=== PATIENT | male | born 1980 | race African-American/Black ===

== ENCOUNTER 2017-01-15 10:32 | Emergency (ER) | payer OTHER ==
[~2017-01-15] VITALS: Ht 165.1 cm; Wt 72.1 kg
[~2017-01-15 10:32] MED LIST: EYED OPB
[2017-01-15 10:34] VITALS: TEMP 36.5; Ht 165.1 cm; Wt 72.1 kg
--- NOTE | 2017-01-15 11:28 | EMERGENCY ROOM VISIT NOTE ---
ED Visit Note First contact with patient: 11:07 CHIEF COMPLAINT: Wrist injury HISTORY OF PRESENT ILLNESS: This 36-year-old male patient presents to the emergency department by private vehicle complaining of pain in the right wrist after an injury 1.5 weeks ago. 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 He went to an urgent care the following day and had x-rays that he was told were negative. He is concerned because he continues to have significant pain and deformity in his wrist, and is here because he wants to be rechecked. The patient is able to move their wrist. The patient states the pain is aching/ throbbing and 6/10. No laceration, no weakness. No numbness or tingling. The patient denies any other injury. The patient is able to move their fingers and elbow without difficulty. The patient has not had a previous fracture to this wrist. The patient has taken no medications for the pain. REVIEW OF SYSTEMS: A 6 system review of systems was performed with positives and pertinent negatives in the HPI. ALLERGIES: Reviewed in chart MEDICATIONS: No medications PMH: No significant past medical or surgical history SOCIAL HISTORY: Lives at home. Current every day smoker, denies alcohol and recreational drug use. PHYSICAL EXAM: Vital Signs: Reviewed Nurse's notes, vital signs stable. GENERAL : Pleasant and cooperative, in no acute distress, well-developed, well- nourished. NEURO: Alert and oriented to person place and time. Normal sensation to light and sharp touch. MUSCULOSKELETAL: There is no obvious deformity of the right wrist. There is tenderness and edema over the right proximal second and third metacarpal. There is no snuff box tenderness. Range of motion is intact. There is no tenderness of the elbow, hand or fingers. Business Office Representative strength 4/5. Radial pulse 2+. SKIN: Normal and intact. The hand is warm and well perfused with capillary refill less than 2 seconds. IMAGING: RIGHT WRIST 5 VIEWS CLINICAL HISTORY: Right wrist pain. FINDINGS: 5 views of the right wrist are obtained. No prior studies are available for comparison at the time of dictation. The skeletal structures are well mineralized. There is an avulsion fracture identified along the dorsal aspect of the carpometacarpal junction. This is only seen on the lateral view and the donor site cannot be localized. No additional fracture is seen. The joint spaces of the wrist are well-maintained. Dorsal soft tissue swelling is noted. IMPRESSION: 1. There is a small avulsion fracture identified along the dorsal aspect of the carpometacarpal junction with overlying soft tissue edema. The exact donor site cannot be localized. 2. No additional fracture is identified. EMERGENCY DEPARTMENT COURSE: I examined the patient. Differential diagnosis includes contusion, sprain/strain, fracture, dislocation. An X-ray of the right hand and right wrist was reviewed by myself and radiologist and showed an avulsion fracture of the wrist. A volar Ortho-Glass splint was placed under my direction and the position was satisfactory. Neurovascular status rechecked and intact. The patient was discharged home in good condition. Current/Historical Medications Scheduled Eye Drops (Eye Drops), 1 DROP OPB HS Allergies Coded Allergies: Cat Dander (Verified Allergy, Unknown, ., 01/15/17) NO KNOWN DRUG ALLERGIES (Verified Allergy, Unknown, ., 01/15/17) Vital Signs Date Time Temp Pulse Resp B/P (MAP) Pulse Ox O2 Delivery O2 Flow Rate FiO2 01/15/17 13:14 80 20 126/73 98 01/15/17 10:34 36.5 65 20 104/57 100 Room Air Departure Information Impression Primary Impression: Wrist fracture, closed Dispostion Home / Self-Care Condition GOOD Referrals Yuniel Mckenna DVerónicaO. (PCP) Luis Miguel Cornejo, DO Patient Instructions ED Fx Wrist General, [facility] Additional Instructions Keep the wrist splint on at all times and keep it clean and dry, the splint cannot get wet. Ibuprofen 600 mg and/or Tylenol 1000 mg every 8 hours as needed for pain. Follow-up with the orthopedic surgeon this week, call for an appointment. Problem Qualifiers Primary Impression: Wrist fracture, closed Encounter type: initial encounter Laterality: right Qualified Codes: S62.101A - Fracture of unspecified carpal bone, right wrist, initial encounter for closed fracture
--- NOTE | 2017-01-15 11:51 | DIAGNOSTIC IMAGING REPORT ---
R HAND MIN 3 VIEWS ROUTINE CLINICAL HISTORY: 36 years-old Male presenting with right hand/wrist pain, swelling, eval fracture, dislocation. TECHNIQUE: Frontal, oblique, and lateral views of the right hand were obtained. COMPARISON: None. FINDINGS: No acute fracture or malalignment. No degenerative change. No radiographic evidence of soft tissue swelling. IMPRESSION: No acute osseous injury of the right hand. Electronically signed by: Trevor Forbes M.D. 01/15/2017 11:50 AM Dictated Date/Time: 01/15/2017 11:49 AM
--- NOTE | 2017-01-15 12:13 | DIAGNOSTIC IMAGING REPORT ---
RIGHT WRIST 5 VIEWS CLINICAL HISTORY: Right wrist pain. FINDINGS: 5 views of the right wrist are obtained. No prior studies are available for comparison at the time of dictation. The skeletal structures are well mineralized. There is an avulsion fracture identified along the dorsal aspect of the carpometacarpal junction. This is only seen on the lateral view and the donor site cannot be localized. No additional fracture is seen. The joint spaces of the wrist are well-maintained. Dorsal soft tissue swelling is noted. IMPRESSION: 1. There is a small avulsion fracture identified along the dorsal aspect of the carpometacarpal junction with overlying soft tissue edema. The exact donor site cannot be localized. 2. No additional fracture is identified. Electronically signed by: Adan Valverde M.D. 01/15/2017 12:12 PM Dictated Date/Time: 01/15/2017 11:50 AM
[2017-01-15 13:14] VITALS: BP 126/73; PULSE 80; O2SAT 98
== END 2017-01-15 13:16 | disposition home or self-care (01) ==
LOC: C.EDB 10:33 → C.EDD 13:16
DX: S62.101A Fracture of unspecified carpal bone, right wrist, initial encounter for closed fracture (principal); Y93.71 Activity, boxing; W51.XXXA Accidental striking against or bumped into by another person, initial encounter; F17.210 Nicotine dependence, cigarettes, uncomplicated